=== PATIENT | male | born 1965 | race Caucasian/White ===

== ENCOUNTER → 2021-09-17 | Outpatient (CLI) | payer OTHER ==
[~2021-09-17] MED LIST: ASPIR-LOW81 MG PO; ASPIRIN 81M81 MG/TA2 PO; ASPIRIN E.C. 8181 MG PO; BYSTOLIC5 MG PO; CEPHALEXIN500 M1 PO; DEPO-TESTOS100 MG/ML IM; FISH OIL1000 MG PO; GLUCOPHAGE PO; GLUCOPHAGE1000 MG PO; JANUMXR1000-50 PO; JANUVIA25 MG PO; LASIX 40MG TABL40 MG PO; LASIX 80MG TABL80 MG PO; LISINOPRIL HCTZ1 TAB PO; LORTAB 5/500 501 TAB PO; MYLANTA 150 ML150 M1 PO; NORCO 325 MG-7.1 TAB PO; PAMELOR 25MG25 MG PO; PEPCID 20MG TAB20 MG PO; PEPTO BISM262 MG/15 PO; PRIL40 PO; PRILOSEC 20MG20 MG PO; PRINZIDE 12.5 M1 TA1 PO; PRINZIDE 12.5 M1 TAB PO; PRINZIDE 25 MG-1 TAB PO; REGLAN 10MG10 MG/TAB PO; VICODIN 5/5001 UDTAB PO; ZOCOR 20MG20 MG PO; ZOCOR 40MG40 MG PO; ZOCOR20 MG PO; ZOFRAN 4MG T4 MG/TAB PO; ZOFRAN4 M1 PO
== END ==
LOC: COL.RAD 07:39
DX: I63.81 Other cerebral infarction due to occlusion or stenosis of small artery (principal)